=== PATIENT | male | born 1955 | race Native Hawaiian/Other Pacific Islander ===

== ENCOUNTER → 2023-04-21 | Outpatient (CLI) | payer MEDICAID ==
[2023-04-21 07:59] LABS: Anion Gap 5 (5-15); Carbon Dioxide 30 mmol/L (20-30); Chloride 101 mmol/L (98-107); Potassium 4.3 mmol/L (3.5-5.1); Sodium 136 mmol/L (136-145)
[2023-04-21 08:00] LABS: Calcium 9.5 mg/dL (8.5-10.1)
[2023-04-21 08:05] LABS: BUN/Creatinine Ratio 17.4 (10.0-20.0); Blood Urea Nitrogen 19 mg/dL (9-23); Glucose 141 mg/dL (74-106); Triglycerides 125 mg/dL (< 150)
[2023-04-21 08:06] LABS: LDL Cholesterol 71 mg/dL (< 100)
[2023-04-21 08:07] LABS: Cholesterol 117 mg/dL (< 200); HDL Cholesterol 36 mg/dL (40-59)
[2023-04-21 08:12] LABS: Creatinine, Urine 47.75 mg/dL (30.0-125.0)
[2023-04-21 08:21] LABS: Uric Acid 4.4 mg/dL (3.7-9.2)
[2023-04-22 08:06] LABS: Thyroxine (T4) 7.7 ug/dL (4.5-12.0)
[2023-04-22 10:06] LABS: Free Thyroxine Index 2.9 (1.2-4.9)
== END | disposition home or self-care (01) ==
LOC: LAB 06:43
PROVIDERS: ATTEND Internal Medicine
DX: E11.69 Type 2 diabetes mellitus with other specified complication (principal); E03.9 Hypothyroidism, unspecified; E78.5 Hyperlipidemia, unspecified; M10.9 Gout, unspecified
CPT/HCPCS: 36415; 80048; 80061; 82043; 82570; 83036; 84443; 84550

== ENCOUNTER → 2023-07-19 | Outpatient (CLI) | payer MEDICAID ==
[2023-07-19 07:37] LABS: Alanine Aminotransferase 14 U/L (7-40); Albumin 4.5 g/dL (3.2-4.8); Alkaline Phosphatase 51 U/L (46-116); Anion Gap 4 (5-15); Aspartate Aminotransferase 29 U/L (13-40); BUN/Creatinine Ratio 15.2 (10.0-20.0); Blood Urea Nitrogen 16 mg/dL (9-23); Calcium 9.8 mg/dL (8.5-10.1); Carbon Dioxide 30 mmol/L (20-30); Chloride 100 mmol/L (98-107); Cholesterol 126 mg/dL (< 200); Glucose 160 mg/dL (74-106); Potassium 3.8 mmol/L (3.5-5.1); Sodium 134 mmol/L (136-145); Triglycerides 72 mg/dL (< 150)
[2023-07-19 07:38] LABS: Bilirubin, Total 1.2 mg/dL (0.2-1.0); HDL Cholesterol 34 mg/dL (40-59)
[2023-07-19 07:49] LABS: LDL Cholesterol 85 mg/dL (< 100)
[2023-07-19 09:07] LABS: Uric Acid 3.5 mg/dL (3.7-9.2)
[2023-07-20 08:33] LABS: Hepatitis B Surface Antigen Negative (Negative)
[2023-07-20 08:54] LABS: Hepatitis A Ab IgM Negative
[2023-07-20 08:55] LABS: Hepatitis B Core IgM Negative; Hepatitis C Antibody Negative (Negative)
== END | disposition home or self-care (01) ==
LOC: LAB 06:23
PROVIDERS: ATTEND Internal Medicine
DX: Z12.5 Encounter for screening for malignant neoplasm of prostate (principal); E11.69 Type 2 diabetes mellitus with other specified complication; E78.5 Hyperlipidemia, unspecified; M10.9 Gout, unspecified
CPT/HCPCS: 36415; 80053; 80061; 80074; 82270; 83036; 84153; 84550

== ENCOUNTER → 2023-10-04 | Outpatient (CLI) | payer MEDICAID ==
[2023-10-04 07:35] LABS: Creatinine, Urine 47.93 mg/dL (30.0-125.0)
[2023-10-04 07:47] LABS: Alanine Aminotransferase 14 U/L (7-40); Alkaline Phosphatase 51 U/L (46-116); Anion Gap 8 (5-15); BUN/Creatinine Ratio 16.5 (10.0-20.0); Blood Urea Nitrogen 17 mg/dL (9-23); Calcium 9.5 mg/dL (8.7-10.4); Carbon Dioxide 25 mmol/L (20-30); Chloride 97 mmol/L (98-107); Glucose 127 mg/dL (74-106); LDL Cholesterol 83 mg/dL (< 100); Potassium 4.2 mmol/L (3.5-5.1); Sodium 130 mmol/L (136-145); Triglycerides 95 mg/dL (< 150)
[2023-10-04 07:48] LABS: Albumin 4.4 g/dL (3.2-4.8); Aspartate Aminotransferase 46 U/L (13-40); Cholesterol 132 mg/dL (< 200); HDL Cholesterol 34 mg/dL (40-59)
[2023-10-04 07:49] LABS: Total Protein 6.9 g/dL (5.7-8.2)
[2023-10-04 08:54] LABS: Uric Acid 3.4 mg/dL (3.7-9.2)
== END | disposition home or self-care (01) ==
LOC: LAB 06:16
PROVIDERS: ATTEND Internal Medicine
DX: E11.69 Type 2 diabetes mellitus with other specified complication (principal); E78.5 Hyperlipidemia, unspecified; M10.9 Gout, unspecified
CPT/HCPCS: 36415; 80053; 80061; 82043; 82570; 83036; 84550